=== PATIENT | female | born 1965 | race Caucasian/White ===

== ENCOUNTER 2021-07-30 14:34 | Observation (INO) | payer MEDICARE ==
[2021-07-30] VITALS (24 sets, daily range): BP systolic 66–132; BP diastolic 37–106
[~2021-07-30] VITALS: Ht 152.4 cm; Wt 85.0 kg
[2021-07-30 15:31] LABS: HEMATOCRIT 31.2 % (37.0-47.0); HEMOGLOBIN 9.5 g/dl (12.0-16.0); IMMATURE GRANULOCYTES 0.5 % (0.0-5.0); MEAN CELL VOLUME 90.7 fL CALC (80.0-100.0); MEAN CORPUSCULAR HGB 27.6 pG CALC (26.0-32.0); MEAN CORPUSCULAR HGB CONC 30.4 g/dL CAL (32.0-36.0); NEUT# 9.92 thou/uL (2.00-7.15); RED BLOOD COUNT 3.44 mill/uL (4.20-5.60); RED CELL DISTRI WIDTH 14.8 % (11.5-15.5)
[2021-07-30 15:45] LABS: ALBUMIN 4.5 g/dL (3.2-5.0); ALKALINE PHOSPHATASE 66 u/l (38-126); ANION GAP 22 (6-22 (CALC)); BILIRUBIN, TOTAL 0.3 mg/dL (0.0-1.4); BUN 21 mg/dL (7-17); BUN/CREATININE RATIO 16 (12-20 (CALC)); CARBON DIOXIDE 20 mmol/l (22-30); CHLORIDE 101 mmol/l (95-108); CREATININE 1.3 mg/dL (0.5-1.0); ETHYL ALCOHOL 0 mg/dl (0-30); GFR 43 ML/MIN (>=60 (CALC)); GFR FOR AFR.AMER. 52 ML/MIN (>=60 (CALC)); LIPASE 253 u/l (23-300); MAGNESIUM 1.3 mg/dL (1.6-2.3); POTASSIUM 4.5 mmol/l (3.5-5.1); SGOT/AST 23 u/l (14-36); SODIUM 138 mmol/l (137-146); TOTAL PROTEIN 8.1 g/dL (6.3-8.2)
[2021-07-30 15:51] LABS: ACT PARTIAL THROMBO TIME 21.7 SECONDS (20.0-32.5); INTERNATIONAL NORMALIZED RATIO 0.9 RATIO (0.7-1.3); PROTHROMBIN TIME 9.9 SECONDS (9.0-12.5)
[2021-07-30] MEDS ORDERED: LEVOCETIRIZINE D5 MG PO (15:56)
[2021-07-30] MEDS ORDERED: LOPID600 MG PO (15:56)
[2021-07-30] MEDS ORDERED: VENLAFAXINE HCL75 M1 PO (15:57)
[2021-07-30] MEDS ORDERED: METFORMIN HCL1000 MG PO (15:57)
[2021-07-30] MEDS ORDERED: VENLAFAXINE150 M1 PO (15:58)
[2021-07-30] MEDS ORDERED: BUPROPION150 M3 PO (15:58)
[2021-07-30] MEDS ORDERED: BUPROPN HCL300 MG PO (15:58)
[2021-07-30] MEDS ORDERED: SIMVASTATIN20 M1 (15:59)
[2021-07-30] MEDS ORDERED: ATIVAN1 MG PO (15:59)
[2021-07-30] MEDS ORDERED: NOVOLOG FL100 UNIT/M (16:01)
[2021-07-30] MEDS ORDERED: LANTUS100 UNIT (16:02)
[2021-07-30 16:13] LABS: URINE BLOOD DIPSTICK SMALL (NEGATIVE); URINE COLOR YELLOW; URINE GLUCOSE - DIPSTICK NEGATIVE (NEGATIVE); URINE KETONE 15 mg/dL (NEGATIVE); URINE PH 5.5 (4.5-8.0); URINE PROTEIN - DIPSTICK 100 mg/dL (NEG-TRACE); URINE SPECIFIC GRAVITY >=1.030; URINE UROBILINOGEN - DIPSTICK 0.2 E.U./dL (0.2)
[2021-07-30 16:14] LABS: URINE BILIRUBIN - DIPSTICK SMALL (NEGATIVE); URINE LEUK ESTERASE MODERATE (NEGATIVE); URINE NITRITE - DIPSTICK NEGATIVE (Negative)
[2021-07-30 16:16] LABS: URINE BACTERIA FEW hpf; URINE EPITHELIAL CELLS MODERATE EPI/hpf (0-FEW)
[2021-07-31] VITALS (30 sets, daily range): BP systolic 104–153; BP diastolic 48–99
[2021-07-31 04:14] LABS: HEMATOCRIT 32.6 % (37.0-47.0); HEMOGLOBIN 9.9 g/dl (12.0-16.0); MEAN CELL VOLUME 89.8 fL CALC (80.0-100.0); MEAN CORPUSCULAR HGB 27.3 pG CALC (26.0-32.0); MEAN CORPUSCULAR HGB CONC 30.4 g/dL CAL (32.0-36.0); RED BLOOD COUNT 3.63 mill/uL (4.20-5.60); RED CELL DISTRI WIDTH 14.9 % (11.5-15.5)
[2021-07-31 04:32] LABS: ANION GAP 12 (6-22 (CALC)); BUN 14 mg/dL (7-17); BUN/CREATININE RATIO 21 (12-20 (CALC)); CARBON DIOXIDE 22 mmol/l (22-30); CHLORIDE 107 mmol/l (95-108); CREATININE 0.7 mg/dL (0.5-1.0); GFR > 60 ML/MIN (>=60 (CALC)); GFR FOR AFR.AMER. > 60 ML/MIN (>=60 (CALC)); MAGNESIUM 1.6 mg/dL (1.6-2.3); POTASSIUM 4.2 mmol/l (3.5-5.1); SODIUM 137 mmol/l (137-146)
[2021-07-31] MEDS ORDERED: LISINOPRIL30 MG PO (11:15)
[2021-08-01] VITALS (7 sets, daily range): BP systolic 117–144; BP diastolic 67–105
[2021-08-01 05:43] LABS: HEMATOCRIT 31.8 % (37.0-47.0); HEMOGLOBIN 9.7 g/dl (12.0-16.0); MEAN CELL VOLUME 89.6 fL CALC (80.0-100.0); MEAN CORPUSCULAR HGB 27.3 pG CALC (26.0-32.0); MEAN CORPUSCULAR HGB CONC 30.5 g/dL CAL (32.0-36.0); RED BLOOD COUNT 3.55 mill/uL (4.20-5.60); RED CELL DISTRI WIDTH 14.7 % (11.5-15.5)
[2021-08-01 05:59] LABS: ANION GAP 11 (6-22 (CALC)); BUN 13 mg/dL (7-17); BUN/CREATININE RATIO 20 (12-20 (CALC)); CARBON DIOXIDE 23 mmol/l (22-30); CHLORIDE 105 mmol/l (95-108); CREATININE 0.6 mg/dL (0.5-1.0); GFR > 60 ML/MIN (>=60 (CALC)); GFR FOR AFR.AMER. > 60 ML/MIN (>=60 (CALC)); POTASSIUM 3.9 mmol/l (3.5-5.1); SODIUM 135 mmol/l (137-146)
[2021-08-01] MEDS ORDERED: CIPROFLOXACN500 MG PO (08:27)
== END 2021-08-01 09:50 | disposition home or self-care (01) ==
LOC: ED 14:34 → ED-I 14:57 → ED 14:57 → ED-I 16:55 → ED 17:05 → ICU 17:06
PROVIDERS: Internal Medicine; ADMIT Hospitalist; ATTEND Hospitalist
DX: A41.9 Sepsis, unspecified organism (principal); R65.20 Severe sepsis without septic shock; N17.9 Acute kidney failure, unspecified; N39.0 Urinary tract infection, site not specified; E87.2 Acidosis; I10 Essential (primary) hypertension; E11.9 Type 2 diabetes mellitus without complications; E83.42 Hypomagnesemia; E78.5 Hyperlipidemia, unspecified; F41.9 Anxiety disorder, unspecified; F32.A Depression, unspecified; B96.20 Unspecified Escherichia coli [E. coli] as the cause of diseases classified elsewhere; Z88.0 Allergy status to penicillin; Z79.4 Long term (current) use of insulin; Z79.84 Long term (current) use of oral hypoglycemic drugs; Z20.822 Contact with and (suspected) exposure to COVID-19
CPT/HCPCS: J1650; J3475; Q9967

== ENCOUNTER 2022-08-28 13:32 | Emergency (ER) | payer MEDICARE, OTHER ==
[~2022-08-28] VITALS: Ht 152.4 cm; Wt 78.1 kg
[~2022-08-28 13:32] MED LIST: ATIVAN1 MG PO; BUPROPION150 M3 PO; BUPROPN HCL300 MG PO; CIPROFLOXACN500 MG PO; LANTUS100 UNIT; LEVOCETIRIZINE D5 MG PO; LISINOPRIL30 MG PO; LOPID600 MG PO; METFORMIN HCL1000 MG PO; NOVOLOG FL100 UNIT/M; SIMVASTATIN20 M1; VENLAFAXINE HCL75 M1 PO; VENLAFAXINE150 M1 PO
[2022-08-28 13:40] VITALS: BP 109/76
[2022-08-28 13:45] VITALS: BP 112/73
[2022-08-28 14:00] VITALS: BP 100/70
[2022-08-28 14:02] LABS: BASO% 0.5 % (0-3); EOS% 4.2 % (0-8); IMMATURE GRANULOCYTES 0.8 % (0.0-5.0); LYMPH% 19.2 % (15-41); MEAN CELL VOLUME 89.7 fL CALC (80.0-100.0); MEAN CORPUSCULAR HGB 28.1 pG CALC (26.0-32.0); MEAN CORPUSCULAR HGB CONC 31.3 g/dL CAL (32.0-36.0); MONO% 6.9 % (2-13); NEUT% 68.4 % (42-76); RED BLOOD COUNT 4.74 mill/uL (4.20-5.60); RED CELL DISTRI WIDTH 13.3 % (11.5-15.5)
[2022-08-28 14:04] LABS: HEMATOCRIT 42.5 % (37.0-47.0); HEMOGLOBIN 13.3 g/dl (12.0-16.0)
[2022-08-28 14:15] VITALS: BP 101/64
[2022-08-28 14:20] LABS: ALKALINE PHOSPHATASE 62 u/l (38-126); BUN 18 mg/dL (7-17); BUN/CREATININE RATIO 23 (12-20 (CALC)); CARBON DIOXIDE 26 mmol/l (22-30); CHLORIDE 101 mmol/l (95-108); CREATININE 0.8 mg/dL (0.5-1.0); GFR FOR AFR.AMER. > 60 ML/MIN (>=60 (CALC)); GFR OTHER RACES > 60 ML/MIN (>=60 (CALC)); SGOT/AST 28 u/l (14-36); SODIUM 140 mmol/l (137-146)
[2022-08-28 14:21] LABS: ANION GAP 17 (6-22 (CALC)); BILIRUBIN, TOTAL 0.3 mg/dL (0.02-1.3); POTASSIUM 4.4 mmol/l (3.5-5.1); TOTAL PROTEIN 8.8 g/dL (6.3-8.2)
[2022-08-28] MEDS ORDERED: MECLIZINE 2525 MG PO (16:29)
[2022-08-28 16:43] VITALS: BP 101/64
== END 2022-08-28 17:31 | disposition home or self-care (01) ==
LOC: ED 13:32
PROVIDERS: Family Medicine
DX: R42 Dizziness and giddiness (principal); I10 Essential (primary) hypertension; E11.9 Type 2 diabetes mellitus without complications; J45.909 Unspecified asthma, uncomplicated; F32.A Depression, unspecified; F41.9 Anxiety disorder, unspecified; E78.00 Pure hypercholesterolemia, unspecified; Z79.84 Long term (current) use of oral hypoglycemic drugs; Z79.4 Long term (current) use of insulin

== ENCOUNTER 2023-11-25 10:51 | Emergency (ER) | payer MEDICARE ==
[~2023-11-25] VITALS: Ht 152.4 cm; Wt 71.4 kg
[2023-11-25] VITALS (8 sets, daily range): BP systolic 97–128; BP diastolic 61–83
[~2023-11-25 10:51] MED LIST changes: +MECLIZINE 2525 MG PO
[2023-11-25] MEDS ORDERED: SODIUM CHLORIDE 0.9% 1,000 ML IV ONE (11:30)
[2023-11-25 12:01] LABS: BASO% 1.2 % (0-3); EOS% 6.2 % (0-8); HEMATOCRIT 40.3 % (37.0-47.0); IMMATURE GRANULOCYTES 0.6 % (0.0-5.0); MEAN CELL VOLUME 92.2 fL CALC (80.0-100.0); MEAN CORPUSCULAR HGB 29.7 pG CALC (26.0-32.0); MEAN CORPUSCULAR HGB CONC 32.3 g/dL CAL (32.0-36.0); MONO% 6.8 % (2-13); NEUT# 4.89 thou/uL (2.00-7.15); NEUT% 57.2 % (42-76); RED BLOOD COUNT 4.37 mill/uL (4.20-5.60); RED CELL DISTRI WIDTH 12.7 % (11.5-15.5)
[2023-11-25 12:29] LABS: ALKALINE PHOSPHATASE 60 u/l (38-126); BILIRUBIN, TOTAL 0.5 mg/dL (0.02-1.3); BUN 21 mg/dL (7-17); BUN/CREATININE RATIO 24 (12-20 (CALC)); CHLORIDE 110 mmol/l (95-108); CREATININE 0.9 mg/dL (0.5-1.0); ESTIMATED GFR 76 ML/MIN (>=90 (CALC)); LIPASE 280 u/l (23-300); POTASSIUM 4.7 mmol/l (3.5-5.1); SGOT/AST 34 u/l (14-36); SODIUM 141 mmol/l (137-146)
[2023-11-25 12:32] LABS: ANION GAP 15 (6-22 (CALC)); CARBON DIOXIDE 21 mmol/l (22-30); TOTAL PROTEIN 9.1 g/dL (6.3-8.2)
[2023-11-25 13:34] LABS: URINE BILIRUBIN - DIPSTICK Negative (NEGATIVE); URINE BLOOD DIPSTICK Trace-lysed (NEGATIVE); URINE GLUCOSE - DIPSTICK Negative (NEGATIVE); URINE KETONE Negative (NEGATIVE); URINE LEUK ESTERASE Trace (NEGATIVE); URINE NITRITE - DIPSTICK Negative (Negative); URINE PROTEIN - DIPSTICK Negative (NEG-TRACE); URINE SPECIFIC GRAVITY 1.025; URINE UROBILINOGEN - DIPSTICK 0.2 E.U./dL (0.2)
[2023-11-25 13:36] LABS: URINE COLOR Yellow
[2023-11-25] MEDS ORDERED: IMODIUM A-D2 M3 PO (14:03)
== END 2023-11-25 14:12 | disposition home or self-care (01) ==
LOC: ED 10:51
PROVIDERS: Family Medicine
DX: K52.9 Noninfective gastroenteritis and colitis, unspecified (principal); I10 Essential (primary) hypertension; E11.9 Type 2 diabetes mellitus without complications; J45.909 Unspecified asthma, uncomplicated; E78.00 Pure hypercholesterolemia, unspecified; F41.9 Anxiety disorder, unspecified; F32.A Depression, unspecified; Z79.84 Long term (current) use of oral hypoglycemic drugs; Z79.4 Long term (current) use of insulin

== ENCOUNTER 2024-01-31 08:54 | Emergency (ER) | payer MEDICARE ==
[2024-01-31] VITALS (7 sets, daily range): BP systolic 132–143; BP diastolic 72–85
[~2024-01-31] VITALS: Ht 152.4 cm; Wt 69.0 kg
[~2024-01-31 08:54] MED LIST changes: +IMODIUM A-D2 M3 PO
[2024-01-31 09:32] LABS: URINE BILIRUBIN - DIPSTICK Negative (NEGATIVE); URINE BLOOD DIPSTICK Large (NEGATIVE); URINE COLOR Yellow; URINE GLUCOSE - DIPSTICK Negative (NEGATIVE); URINE KETONE Negative (NEGATIVE); URINE LEUK ESTERASE Negative (NEGATIVE); URINE NITRITE - DIPSTICK Negative (Negative); URINE PROTEIN - DIPSTICK 100 mg/dL (NEG-TRACE); URINE SPECIFIC GRAVITY 1.025; URINE UROBILINOGEN - DIPSTICK 0.2 E.U./dL (0.2)
[2024-01-31 09:34] LABS: BASO% 1.5 % (0-3); EOS% 6.6 % (0-8); HEMATOCRIT 32.8 % (37.0-47.0); HEMOGLOBIN 10.1 g/dl (12.0-16.0); IMMATURE GRANULOCYTES 0.5 % (0.0-5.0); LYMPH% 22.1 % (15-41); MEAN CELL VOLUME 95.1 fL CALC (80.0-100.0); MEAN CORPUSCULAR HGB 29.3 pG CALC (26.0-32.0); MEAN CORPUSCULAR HGB CONC 30.8 g/dL CAL (32.0-36.0); MONO% 8.1 % (2-13); NEUT# 4.85 thou/uL (2.00-7.15); NEUT% 61.2 % (42-76); RED BLOOD COUNT 3.45 mill/uL (4.20-5.60); RED CELL DISTRI WIDTH 14.1 % (11.5-15.5)
[2024-01-31 09:44] LABS: URINE RBC 25-50 RBC/hpf (0-5)
[2024-01-31 09:45] LABS: URINE SQUAMOUS EPITHELIAL CELL FEW EPI/hpf (0-FEW)
[2024-01-31 10:03] LABS: ALBUMIN 4.7 g/dL (3.2-5.0); BILIRUBIN, TOTAL 0.5 mg/dL (0.02-1.3); CREATININE 0.6 mg/dL (0.5-1.0)
[2024-01-31 10:04] LABS: POTASSIUM 5.6 mmol/l (3.5-5.1)
== END 2024-01-31 10:48 | disposition home or self-care (01) ==
LOC: ED 08:54
PROVIDERS: Family Medicine
DX: R19.7 Diarrhea, unspecified (principal); N93.9 Abnormal uterine and vaginal bleeding, unspecified; I10 Essential (primary) hypertension; E11.9 Type 2 diabetes mellitus without complications; J45.909 Unspecified asthma, uncomplicated; F41.9 Anxiety disorder, unspecified; F32.A Depression, unspecified; E78.00 Pure hypercholesterolemia, unspecified; Z79.84 Long term (current) use of oral hypoglycemic drugs; Z79.4 Long term (current) use of insulin

== ENCOUNTER 2024-02-03 06:48 | Emergency (ER) | payer MEDICARE ==
[~2024-02-03] VITALS: Ht 152.4 cm; Wt 68.9 kg
[2024-02-03 07:06] VITALS: BP 130/78
[2024-02-03 07:15] VITALS: BP 132/72
[2024-02-03] MEDS ORDERED: CEPHALEXIN500 M1 PO (08:27)
[2024-02-03 08:38] VITALS: BP 132/72
== END 2024-02-03 08:38 | disposition home or self-care (01) ==
LOC: ED 06:48
DX: T80.29XA Infection following other infusion, transfusion and therapeutic injection, initial encounter (principal); L03.113 Cellulitis of right upper limb; I10 Essential (primary) hypertension; E11.9 Type 2 diabetes mellitus without complications; F41.9 Anxiety disorder, unspecified; F32.A Depression, unspecified; E78.00 Pure hypercholesterolemia, unspecified; J45.909 Unspecified asthma, uncomplicated; Y84.8 Other medical procedures as the cause of abnormal reaction of the patient, or of later complication, without mention of misadventure at the time of the procedure; Z79.84 Long term (current) use of oral hypoglycemic drugs; Z79.4 Long term (current) use of insulin

== ENCOUNTER 2024-03-25 07:33 | Emergency (ER) | payer MEDICARE ==
[~2024-03-25] VITALS: Ht 152.4 cm; Wt 85.0 kg
[~2024-03-25 07:33] MED LIST changes: +CEPHALEXIN500 M1 PO
[2024-03-25 08:03] LABS: URINE BILIRUBIN - DIPSTICK Negative (NEGATIVE); URINE BLOOD DIPSTICK Large (NEGATIVE); URINE GLUCOSE - DIPSTICK Negative (NEGATIVE); URINE KETONE Negative (NEGATIVE); URINE LEUK ESTERASE Negative (NEGATIVE); URINE NITRITE - DIPSTICK Negative (Negative); URINE PH 5.5 (4.5-8.0); URINE PROTEIN - DIPSTICK >=300 mg/dL (NEG-TRACE); URINE SPECIFIC GRAVITY >=1.030; URINE UROBILINOGEN - DIPSTICK 0.2 E.U./dL (0.2)
[2024-03-25 08:08] LABS: BASO% 1.3 % (0-3); HEMOGLOBIN 9.4 g/dl (12.0-16.0); IMMATURE GRANULOCYTES 0.2 % (0.0-5.0); LYMPH% 18.2 % (15-41); MEAN CORPUSCULAR HGB 26.5 pG CALC (26.0-32.0); MEAN CORPUSCULAR HGB CONC 30.3 g/dL CAL (32.0-36.0); MONO% 9.3 % (2-13); NEUT# 5.71 thou/uL (2.00-7.15); RED BLOOD COUNT 3.55 mill/uL (4.20-5.60); RED CELL DISTRI WIDTH 14.3 % (11.5-15.5)
[2024-03-25 08:13] LABS: MEAN CELL VOLUME 87.3 fL CALC (80.0-100.0); URINE COLOR Yellow
[2024-03-25 08:19] LABS: URINE HYALINE CAST MODERATE lpf (NONE-RARE)
[2024-03-25 08:20] LABS: URINE BACTERIA FEW hpf
[2024-03-25 08:22] LABS: ALBUMIN 4.2 g/dL (3.2-5.0); BILIRUBIN, TOTAL 0.4 mg/dL (0.02-1.3); CREATININE 0.7 mg/dL (0.5-1.0); POTASSIUM 3.9 mmol/l (3.5-5.1); TOTAL PROTEIN 7.6 g/dL (6.3-8.2)
[2024-03-25] MEDS ORDERED: SODIUM CHLORIDE 0.9% 1,000 ML IV ONE (08:25)
[2024-03-25] MEDS ORDERED: KETOROLAC TROMETHAMINE 15 MG/ML SDV IV ONE (08:25)
[2024-03-25] MEDS ORDERED: ISOVUE-300 (Iopamidol) 100 ML SDV IV ONE (08:25)
[2024-03-25 09:52] VITALS: BP 138/74
[2024-03-25] MEDS ORDERED: ZOFRAN4 MG/TAB PO (10:37)
[2024-03-25] MEDS ORDERED: HYDROCO/APAP1 TA9 PO (10:37)
== END 2024-03-25 10:41 | disposition home or self-care (01) ==
LOC: ED 07:33
PROVIDERS: Family Medicine
DX: N85.9 Noninflammatory disorder of uterus, unspecified (principal); R91.8 Other nonspecific abnormal finding of lung field; I10 Essential (primary) hypertension; E11.9 Type 2 diabetes mellitus without complications; J45.909 Unspecified asthma, uncomplicated; E78.00 Pure hypercholesterolemia, unspecified; F32.A Depression, unspecified; F41.9 Anxiety disorder, unspecified; Z79.4 Long term (current) use of insulin; Z79.84 Long term (current) use of oral hypoglycemic drugs
CPT/HCPCS: Q9967

== ENCOUNTER 2024-04-16 11:28 | Emergency (ER) | payer MEDICARE ==
[~2024-04-16] VITALS: Ht 152.4 cm; Wt 77.0 kg
[2024-04-16] VITALS (21 sets, daily range): BP systolic 79–142; BP diastolic 50–77
[~2024-04-16 11:28] MED LIST changes: +BAYER ASPIRIN E81 MG PO; +CREON24000 UNT PO; +HYDROCO/APAP1 TA9 PO; +MOUNJARO7.5 M1 SC; +TENORMIN50 MG PO; +ZOFRAN4 MG/TAB PO
[2024-04-16 12:14] LABS: BASO% 1.9 % (0-3); EOS% 1.4 % (0-8); IMMATURE GRANULOCYTES 0.9 % (0.0-5.0); MEAN CELL VOLUME 86.7 fL CALC (80.0-100.0); MEAN CORPUSCULAR HGB 24.5 pG CALC (26.0-32.0); MEAN CORPUSCULAR HGB CONC 28.2 g/dL CAL (32.0-36.0); MONO% 6.1 % (2-13); NEUT# 6.5 thou/uL (2.00-7.15); NEUT% 71.7 % (42-76); RED BLOOD COUNT 2.33 mill/uL (4.20-5.60); RED CELL DISTRI WIDTH 16.8 % (11.5-15.5)
[2024-04-16 12:31] LABS: ALBUMIN 4.1 g/dL (3.2-5.0); ALKALINE PHOSPHATASE 73 u/l (38-126); BILIRUBIN, TOTAL 0.4 mg/dL (0.02-1.3); CARBON DIOXIDE 19 mmol/l (22-30); CHLORIDE 107 mmol/l (95-108); CREATININE 0.8 mg/dL (0.5-1.0); ESTIMATED GFR 86 ML/MIN (>=90 (CALC)); LIPASE 192 u/l (23-300); SGOT/AST 43 u/l (14-36); SODIUM 140 mmol/l (137-146); TOTAL PROTEIN 7.2 g/dL (6.3-8.2)
[2024-04-16 12:47] LABS: HEMATOCRIT 20.2 % (37.0-47.0)
[2024-04-16 12:48] LABS: HEMOGLOBIN 5.7 g/dl (12.0-16.0)
[2024-04-16 12:54] LABS: ANION GAP 19 (6-22 (CALC)); BUN 41 mg/dL (7-17); BUN/CREATININE RATIO 51 (12-20 (CALC)); MAGNESIUM 2.1 mg/dL (1.6-2.3); POTASSIUM 4.8 mmol/l (3.5-5.1)
[2024-04-16] MEDS ORDERED: SODIUM CHLORIDE 0.9% 1,000 ML IV ONE (13:10)
[2024-04-16 15:48] LABS: URINE BILIRUBIN - DIPSTICK Negative (NEGATIVE); URINE BLOOD DIPSTICK Large (NEGATIVE); URINE GLUCOSE - DIPSTICK Negative (NEGATIVE); URINE KETONE Negative (NEGATIVE); URINE NITRITE - DIPSTICK Negative (Negative); URINE PROTEIN - DIPSTICK 30 mg/dL (NEG-TRACE); URINE UROBILINOGEN - DIPSTICK 0.2 E.U./dL (0.2)
[2024-04-16 15:49] LABS: URINE COLOR Yellow; URINE LEUK ESTERASE Small (NEGATIVE)
[2024-04-16 16:04] LABS: URINE RBC 50-100 RBC/hpf (0-5)
[2024-04-16 16:05] LABS: URINE URIC ACID CRYSTALS FEW lpf
== END 2024-04-16 18:14 | disposition short-term general hospital (02) ==
LOC: ED 11:28
PROVIDERS: Family Medicine
PROC: 30233N1 Transfusion of Nonautologous Red Blood Cells into Peripheral Vein, Percutaneous Approach (ICD-10-PCS; principal; 2024-04-16)
PROC: 30233N1 Transfusion of Nonautologous Red Blood Cells into Peripheral Vein, Percutaneous Approach (ICD-10-PCS; 2024-04-16)
DX: N85.8 Other specified noninflammatory disorders of uterus (principal); R91.8 Other nonspecific abnormal finding of lung field; N93.9 Abnormal uterine and vaginal bleeding, unspecified; D64.9 Anemia, unspecified; I10 Essential (primary) hypertension; E11.9 Type 2 diabetes mellitus without complications; J45.909 Unspecified asthma, uncomplicated; F32.A Depression, unspecified; F41.9 Anxiety disorder, unspecified; E78.00 Pure hypercholesterolemia, unspecified; K86.89 Other specified diseases of pancreas; Z79.84 Long term (current) use of oral hypoglycemic drugs; Z20.822 Contact with and (suspected) exposure to COVID-19
CPT/HCPCS: P9016

== ENCOUNTER 2024-05-10 16:22 | Emergency (ER) | payer MEDICARE ==
[~2024-05-10] VITALS: Ht 152.4 cm; Wt 59.0 kg
[~2024-05-10 16:22] MED LIST changes: +VENLAFAXINE HC150 MG PO; -VENLAFAXINE150 M1 PO
[2024-05-10] MEDS ORDERED: HYDROmorphone HCL 2 MG/AMP IM ONE (16:35)
[2024-05-10] MEDS ORDERED: METHOCARBAMOL 1,000 MG/10 ML VIAL IV ONE (16:40)
[2024-05-10] MEDS ORDERED: ONDANSETRON HCl 4 MG/2 ML SDV IV ONE (16:40)
[2024-05-10 17:19] LABS: EOS% 2.4 % (0-8); IMMATURE GRANULOCYTES 0.4 % (0.0-5.0); LYMPH% 14.9 % (15-41); MEAN CORPUSCULAR HGB CONC 28.2 g/dL CAL (32.0-36.0); MONO% 6.8 % (2-13); NEUT# 6.01 thou/uL (2.00-7.15); NEUT% 74.5 % (42-76); RED BLOOD COUNT 4.66 mill/uL (4.20-5.60); RED CELL DISTRI WIDTH 16.5 % (11.5-15.5)
[2024-05-10 17:20] LABS: HEMATOCRIT 44.7 % (37.0-47.0); HEMOGLOBIN 12.6 g/dl (12.0-16.0); MEAN CELL VOLUME 95.9 fL CALC (80.0-100.0)
[2024-05-10 17:25] LABS: ALBUMIN 3.8 g/dL (3.2-5.0); BILIRUBIN, TOTAL 0.5 mg/dL (0.02-1.3); CREATININE 0.6 mg/dL (0.5-1.0); LIPASE 273 u/l (23-300); POTASSIUM 3.8 mmol/l (3.5-5.1); TOTAL PROTEIN 7.3 g/dL (6.3-8.2)
[2024-05-10 17:30] VITALS: BP 133/75
[2024-05-10] MEDS ORDERED: METHOCARBAMOL500 MG PO (18:41)
[2024-05-10] MEDS ORDERED: PERCOCET 5/325M1 TAB PO (18:41)
[2024-05-10 18:47] LABS: URINE BLOOD DIPSTICK Large (NEGATIVE); URINE COLOR Red; URINE GLUCOSE - DIPSTICK Negative (NEGATIVE); URINE KETONE Trace mg/dL (NEGATIVE); URINE LEUK ESTERASE Moderate (NEGATIVE); URINE NITRITE - DIPSTICK Negative (Negative); URINE PROTEIN - DIPSTICK >=300 mg/dL (NEG-TRACE); URINE SPECIFIC GRAVITY 1.025; URINE UROBILINOGEN - DIPSTICK 0.2 E.U./dL (0.2)
[2024-05-10 18:49] LABS: URINE RBC >100 RBC/hpf (0-5); URINE WBC >100 WBC/hpf (0-5)
[2024-05-10 18:50] LABS: URINE CALCIUM OXALATE CRYSTALS FEW lpf
[2024-05-10 18:55] VITALS: BP 133/75
[2024-05-10] MEDS ORDERED: BACTRIM DS1 TAB PO (18:56)
== END 2024-05-10 19:00 | disposition home or self-care (01) ==
LOC: ED 16:22
PROVIDERS: Nurse Practitioner Family
DX: M48.54XA Collapsed vertebra, not elsewhere classified, thoracic region, initial encounter for fracture (principal); N39.0 Urinary tract infection, site not specified; C55 Malignant neoplasm of uterus, part unspecified; C78.00 Secondary malignant neoplasm of unspecified lung; I10 Essential (primary) hypertension; E11.9 Type 2 diabetes mellitus without complications; J45.909 Unspecified asthma, uncomplicated; F41.9 Anxiety disorder, unspecified; F32.A Depression, unspecified; E78.00 Pure hypercholesterolemia, unspecified; Z79.891 Long term (current) use of opiate analgesic; Z79.84 Long term (current) use of oral hypoglycemic drugs
CPT/HCPCS: J1171; J2405; J2800

== ENCOUNTER 2024-05-10 20:55 | Emergency (ER) | payer MEDICARE ==
[~2024-05-10 20:55] MED LIST changes: +BACTRIM DS1 TAB PO; +METHOCARBAMOL500 MG PO; +PERCOCET 5/325M1 TAB PO
== END 2024-05-10 22:45 | disposition left against medical advice (07) ==
LOC: ED 20:55 → LWOBS 22:45
DX: Z53.21 Procedure and treatment not carried out due to patient leaving prior to being seen by health care provider (principal)

== ENCOUNTER 2024-05-13 16:39 | Inpatient (IN) | payer MEDICARE ==
[2024-05-13] VITALS (11 sets, daily range): BP systolic 147–179; BP diastolic 80–100
[~2024-05-13] VITALS: Ht 274.3 cm; Wt 58.8 kg
[2024-05-13] MEDS ORDERED: SODIUM CHLORIDE 0.9% 1,000 ML IV ONE (16:50)
[2024-05-13 17:09] LABS: EOS% 1.6 % (0-8); HEMOGLOBIN 12.3 g/dl (12.0-16.0); IMMATURE GRANULOCYTES 0.3 % (0.0-5.0); LYMPH% 14.2 % (15-41); MEAN CELL VOLUME 86.9 fL CALC (80.0-100.0); MEAN CORPUSCULAR HGB 27.4 pG CALC (26.0-32.0); MEAN CORPUSCULAR HGB CONC 31.5 g/dL CAL (32.0-36.0); MONO% 7.6 % (2-13); NEUT# 6.01 thou/uL (2.00-7.15); NEUT% 75.3 % (42-76); RED BLOOD COUNT 4.49 mill/uL (4.20-5.60); RED CELL DISTRI WIDTH 16.5 % (11.5-15.5)
[2024-05-13 17:22] LABS: ALKALINE PHOSPHATASE 91 u/l (38-126); ANION GAP 11 (6-22 (CALC)); BILIRUBIN, TOTAL 0.5 mg/dL (0.02-1.3); BUN 13 mg/dL (7-17); BUN/CREATININE RATIO 14 (12-20 (CALC)); CARBON DIOXIDE 28 mmol/l (22-30); CHLORIDE 103 mmol/l (95-108); CREATININE 0.9 mg/dL (0.5-1.0); ESTIMATED GFR 75 ML/MIN (>=90 (CALC)); LIPASE 74 u/l (23-300); POTASSIUM 3.8 mmol/l (3.5-5.1); SGOT/AST 46 u/l (14-36); SODIUM 139 mmol/l (137-146); TOTAL PROTEIN 7.6 g/dL (6.3-8.2)
[2024-05-13] MEDS ORDERED: ZOLEDRONIC ACID 4 MG/5 ML VIAL IV ONE (18:15)
[2024-05-13] MEDS ORDERED: MORPHINE SULFATE 4 MG/ML VIAL IV ONE (18:15)
[2024-05-13] MEDS ORDERED: MAGNESIUM HYDROXIDE 30 ML UDC PO PRN (20:10)
[2024-05-13] MEDS ORDERED: oxyCODONE 5MG/ ACETAMINOPHEN 325MG TAB PO PRN (20:10)
[2024-05-13] MEDS ORDERED: ACETAMINOPHEN 325 MG/TAB PO PRN (20:10)
[2024-05-13] MEDS ORDERED: SODIUM CHLORIDE 0.9% 1,000 ML IV PRN (20:10)
[2024-05-13] MEDS ORDERED: MORPHINE SULFATE 4 MG/ML VIAL IV PRN (20:15)
[2024-05-13 20:37] LABS: URINE BILIRUBIN - DIPSTICK Negative (NEGATIVE); URINE BLOOD DIPSTICK Moderate (NEGATIVE); URINE COLOR Yellow; URINE GLUCOSE - DIPSTICK Negative (NEGATIVE); URINE KETONE 40 mg/dL (NEGATIVE); URINE LEUK ESTERASE Moderate (NEGATIVE); URINE NITRITE - DIPSTICK Negative (Negative); URINE PH 5.5 (4.5-8.0); URINE PROTEIN - DIPSTICK 100 mg/dL (NEG-TRACE); URINE SPECIFIC GRAVITY 1.025; URINE UROBILINOGEN - DIPSTICK 0.2 E.U./dL (0.2)
[2024-05-13 20:51] LABS: URINE WBC >100 WBC/hpf (0-5)
[2024-05-13 20:52] LABS: URINE BACTERIA MODERATE hpf
[2024-05-13 20:53] LABS: URINE HYALINE CAST FEW lpf (NONE-RARE); URINE TRANSITIONAL EPI. CELLS FEW hpf
[2024-05-13] MEDS ORDERED: VENLAFAXINE HYDROCHLORIDE 75 MG/CAP PO SCH (21:00)
[2024-05-13] MEDS ORDERED: ENOXAPARIN SODIUM 40 MG/0.4 ML SYR SC SCH (21:00)
[2024-05-14] VITALS (17 sets, daily range): BP systolic 142–182; BP diastolic 80–103
[2024-05-14 05:12] LABS: HEMATOCRIT 37.7 % (37.0-47.0); HEMOGLOBIN 11.8 g/dl (12.0-16.0); MEAN CELL VOLUME 89.3 fL CALC (80.0-100.0); MEAN CORPUSCULAR HGB CONC 31.3 g/dL CAL (32.0-36.0); RED BLOOD COUNT 4.22 mill/uL (4.20-5.60); RED CELL DISTRI WIDTH 16.7 % (11.5-15.5)
[2024-05-14 05:42] LABS: ALBUMIN 3.6 g/dL (3.2-5.0); BILIRUBIN, TOTAL 0.5 mg/dL (0.02-1.3); CREATININE 0.6 mg/dL (0.5-1.0); POTASSIUM 3.8 mmol/l (3.5-5.1); TOTAL PROTEIN 6.9 g/dL (6.3-8.2)
[2024-05-14 05:44] LABS: MAGNESIUM 1.1 mg/dL (1.6-2.3)
[2024-05-14] MEDS ORDERED: oxyCODONE 10MG/APAP 325 MG 1 COMBO TAB PO PRN (08:05)
[2024-05-14] MEDS ORDERED: ZOLEDRONIC ACID IV SCH (09:00)
[2024-05-14] MEDS ORDERED: MAGNESIUM SULFATE HEPTAHYDRATE 50 ML IV SCH (09:00)
[2024-05-14] MEDS ORDERED: LISINOPRIL 10 MG/TAB PO SCH (09:00)
[2024-05-14] MEDS ORDERED: ATENOLOL 50 MG/TAB PO SCH (09:00)
[2024-05-14] MEDS ORDERED: DEXTROSE 5% IV SCH (09:00)
== END 2024-05-15 01:15 | DRG 641 ==
LOC: ED 16:39 → ED-I 18:20 → ED 18:45 → ICU 18:46
PROVIDERS: Family Medicine; ADMIT Internal Medicine; ATTEND Internal Medicine
DX: E83.52 Hypercalcemia (principal); C78.00 Secondary malignant neoplasm of unspecified lung; C79.51 Secondary malignant neoplasm of bone; M84.58XA Pathological fracture in neoplastic disease, other specified site, initial encounter for fracture; C55 Malignant neoplasm of uterus, part unspecified; G89.3 Neoplasm related pain (acute) (chronic); I10 Essential (primary) hypertension; E11.9 Type 2 diabetes mellitus without complications; E78.00 Pure hypercholesterolemia, unspecified; J45.909 Unspecified asthma, uncomplicated; F41.9 Anxiety disorder, unspecified; F32.A Depression, unspecified
CPT/HCPCS: J0696; J1650; J3475; J3489

== ENCOUNTER 2024-06-10 03:54 | Observation (INO) | payer MEDICARE ==
[~2024-06-10] VITALS: Ht 152.4 cm; Wt 55.0 kg
[2024-06-10] VITALS (21 sets, daily range): BP systolic 105–135; BP diastolic 57–75
--- NOTE | 2024-06-10 03:54 | NUR ---
PATIENT TO ROOM 10 VIA EMS
--- NOTE | 2024-06-10 04:30 | NUR ---
VOICES TO NOT OBTAIN PORT ACCESS, PT REFUSES PORT ACCESS, ATTEMPTING IV FOR ADMINISTRATION OF MEDICATON AND POSSIBLE BLOOD TRANSFUSION, PT APPEARS PALE AND UNCOMFORTABLE, C/O CHRONIC ABD PAIN, MD AWARE. LABS COLLECTED.
[2024-06-10 04:41] LABS: BASO% 0.9 % (0-3); EOS% 2.9 % (0-8); IMMATURE GRANULOCYTES 1.5 % (0.0-5.0); LYMPH% 13.5 % (15-41); MEAN CORPUSCULAR HGB 26.4 pG CALC (26.0-32.0); MEAN CORPUSCULAR HGB CONC 28.4 g/dL CAL (32.0-36.0); MONO% 6.6 % (2-13); NEUT# 9.68 thou/uL (2.00-7.15); NEUT% 74.6 % (42-76); RED BLOOD COUNT 2.27 mill/uL (4.20-5.60); RED CELL DISTRI WIDTH 18.8 % (11.5-15.5)
[2024-06-10 04:47] LABS: HEMATOCRIT 21.1 % (37.0-47.0)
[2024-06-10 04:53] LABS: ALBUMIN 3.3 g/dL (3.2-5.0); BILIRUBIN, TOTAL 0.4 mg/dL (0.02-1.3); CREATININE 0.7 mg/dL (0.5-1.0); POTASSIUM 4.2 mmol/l (3.5-5.1); TOTAL PROTEIN 7.2 g/dL (6.3-8.2)
[2024-06-10] MEDS ORDERED: SODIUM CHLORIDE 0.9% 1,000 ML IV ONE (04:55)
[2024-06-10] MEDS ORDERED: oxyCODONE 5MG/ ACETAMINOPHEN 325MG TAB PO ONE (04:55)
--- NOTE | 2024-06-10 05:10 | NUR ---
IV PATENT, PT MEDICATED PER ORDERS, UPDATED ON PLAN FOR BLOOD TRANSFUSION, PT VOICES UNDERSTANDING, AWAITING TYPE AND SCREEN AT THIS TIME.
[2024-06-10] MEDS ORDERED: ACETAMINOPHEN 325 MG/TAB PO PRN (05:50)
[2024-06-10 05:53] LABS: URINE BILIRUBIN - DIPSTICK Negative (NEGATIVE); URINE BLOOD DIPSTICK Moderate (NEGATIVE); URINE GLUCOSE - DIPSTICK Negative (NEGATIVE); URINE KETONE Negative (NEGATIVE); URINE LEUK ESTERASE Trace (NEGATIVE); URINE NITRITE - DIPSTICK Negative (Negative); URINE PH 5.5 (4.5-8.0); URINE PROTEIN - DIPSTICK 30 mg/dL (NEG-TRACE); URINE SPECIFIC GRAVITY 1.025; URINE UROBILINOGEN - DIPSTICK 0.2 E.U./dL (0.2)
[2024-06-10 05:54] LABS: URINE COLOR Yellow
[2024-06-10] MEDS ORDERED: oxyCODONE 5MG/ ACETAMINOPHEN 325MG TAB PO PRN (05:55)
--- NOTE | 2024-06-10 05:55 | NUR ---
BLOOD TRANSFUSION BEGAN AT THIS TIME, PT UPDATED ON CONTINUOUS PLAN OF CARE, PT REMAINS WITH MILD ABDOMINAL CRAMPING/PAIN, VSS. SENIOR BUSINESS PROCESS ANALYST WILL REMAIN AT BEDSIDE PER PROTOCOL.
[2024-06-10 06:04] LABS: URINE BACTERIA FEW hpf; URINE SQUAMOUS EPITHELIAL CELL FEW EPI/hpf (0-FEW)
[2024-06-10] MEDS ORDERED: OXYCODONE5 M1 PO (06:08)
[2024-06-10] MEDS ORDERED: ZOFRAN4 MG/TAB PO (06:09)
[2024-06-10] MEDS ORDERED: PROMETHAZINE PO (06:10)
[2024-06-10] MEDS ORDERED: METHOCARBAMOL750 MG PO (06:11)
--- NOTE | 2024-06-10 06:14 | NUR ---
REPORT CALLED TO [facility] ON [facility].
--- NOTE | 2024-06-10 06:35 | NUR ---
PT TRANSPORTED TO [facility] VIA STRETCHER BY TUBE MACHINE OPERATOR, BLOOD TRANSFUSION REMAINS IPR. PT VOICES APPRECIATION OF CARE.
--- NOTE | 2024-06-10 07:15 | NUR ---
PATIENT ADMITTED FROM ER VIA STRETCHER WITH STAFF IN ATTENDANCE AND 1ST UNIT OF PRBCS INFUSING VIA RAC-UNIT #[id number] [phone]. PATIENT IS AWAKE ALERT AND ORIENTEDX3. PATIENT WEAK BUT SHE IS ABLE TO GO TO THE STANDING SCALE AND THEN TO BED. PATIENT ADMITTED FOR ANEMIA NAD CURRENTLY BEING TREATED FOR UTERINE CANCER. PATIENT HAD A LAMINECTOMY T9-L1 FOR SPINAL FRACTURE. PATIENT DOES HAVE RIGHT UPPER CHEST PORT-NOT ACCESED AT THIS TIME. PATIENT ORIENTED TO ROOM AND HER SURROUNDINGS. INSTRUCTED ON USE OF NURSE CALL LIGHT SYSTEM AND TV REMOTE. SAFETY PRECAUTIONS REINFORCED. CALL LIGHT IN REACH.WILL CONT TO MONITOR,
--- NOTE | 2024-06-10 08:00 | NUR ---
PT IS FOUND RESTING IN BED; SOMEWHAT UNCOMFORTABLE. PT IS A&O X4. PT IS RECEIVING BLOOD. PT CAN MOVE ALL EXTREMITES; WEAKNESS. PLAN OF CARE WAS REVIEWED WITH THE PT; SHE STATES NO FURTHER QUESTIONS AT THIS TIME. CALL LIGHT IS WITHIN BEACH; BED ALARM IS ON.
[2024-06-10] MEDS ORDERED: FUROSEMIDE 40 MG/4 ML SDV IV ONE (09:00)
[2024-06-10] MEDS ORDERED: METHOCARBAMOL 500 MG/TAB PO PRN (12:45)
--- NOTE | 2024-06-10 12:45 | NUR ---
PT'S CONDITION HAS REMAINED THE SAME; PT COMPLAINS OF PAIN- WILL MEDICATE NEEDED. PT WILL RECEIVE ALL 3 BLOOD PRODUCTS AND THEN A RECHECK HGB WILL BE DONE. PLAN IS TO DISCHARGE LATER TODAY. NO FURTHER NEEDS AT THIS TIME. CALL LIGHT IS WITHIN REACH.
--- NOTE | 2024-06-10 15:30 | NUR ---
Discharge instructions given. Patient verbalizes understanding of same. Discharged in stable condition via Wheelchair to Home with family. All belongings sent with pt. IV is out and pt had no TELE on.
--- NOTE | 2024-06-12 10:20 | NUR ---
Discharge follow up call completed 06/12/24. Patient states she is doing well since discharge. No medicain was prescribed at discharge. Patient saw her oncologist yesterday and began treatment for her condition. No needs or concerns verbalized at this time. She is appreciative of follow up.
== END 2024-06-10 15:29 | disposition home or self-care (01) ==
LOC: ED 03:54 → ED-I 05:30 → ED 05:48 → MS2 05:49
PROVIDERS: Family Medicine; ADMIT Internal Medicine; ATTEND Internal Medicine
PROC: 30233N1 Transfusion of Nonautologous Red Blood Cells into Peripheral Vein, Percutaneous Approach (ICD-10-PCS; principal; 2024-06-10)
PROC: 30233N1 Transfusion of Nonautologous Red Blood Cells into Peripheral Vein, Percutaneous Approach (ICD-10-PCS; 2024-06-10)
PROC: 30233N1 Transfusion of Nonautologous Red Blood Cells into Peripheral Vein, Percutaneous Approach (ICD-10-PCS; 2024-06-10)
DX: D62 Acute posthemorrhagic anemia (principal); C55 Malignant neoplasm of uterus, part unspecified; C78.00 Secondary malignant neoplasm of unspecified lung; C79.51 Secondary malignant neoplasm of bone; N93.9 Abnormal uterine and vaginal bleeding, unspecified; I10 Essential (primary) hypertension; E11.9 Type 2 diabetes mellitus without complications; E78.5 Hyperlipidemia, unspecified; J45.909 Unspecified asthma, uncomplicated; F32.A Depression, unspecified; F41.9 Anxiety disorder, unspecified; Z79.84 Long term (current) use of oral hypoglycemic drugs
CPT/HCPCS: G0378; J1940; P9016

== ENCOUNTER 2024-07-17 11:11 | Emergency (ER) | payer MEDICARE ==
[~2024-07-17] VITALS: Ht 152.4 cm; Wt 50.3 kg
[2024-07-17] VITALS (14 sets, daily range): BP systolic 106–130; BP diastolic 59–77
[~2024-07-17 11:11] MED LIST changes: +METHOCARBAMOL750 MG PO; +OXYCODONE5 M1 PO; +PROMETHAZINE PO
[2024-07-17] MEDS ORDERED: SODIUM CHLORIDE 0.9% 1,000 ML IV ONE (11:50)
[2024-07-17 12:00] LABS: BASO% 0.3 % (0-3); EOS% 0.6 % (0-8); IMMATURE GRANULOCYTES 0.5 % (0.0-5.0); LYMPH% 5.7 % (15-41); MEAN CELL VOLUME 90.9 fL CALC (80.0-100.0); MEAN CORPUSCULAR HGB 27.8 pG CALC (26.0-32.0); MEAN CORPUSCULAR HGB CONC 30.6 g/dL CAL (32.0-36.0); MONO% 6.3 % (2-13); NEUT# 9.13 thou/uL (2.00-7.15); NEUT% 86.6 % (42-76); RED BLOOD COUNT 3.09 mill/uL (4.20-5.60)
[2024-07-17 12:01] LABS: HEMATOCRIT 28.1 % (37.0-47.0); HEMOGLOBIN 8.6 g/dl (12.0-16.0)
[2024-07-17 12:13] LABS: ALBUMIN 3.6 g/dL (3.2-5.0); BILIRUBIN, TOTAL 0.4 mg/dL (0.02-1.3); CREATININE 0.5 mg/dL (0.5-1.0); POTASSIUM 3.9 mmol/l (3.5-5.1); TOTAL PROTEIN 7.4 g/dL (6.3-8.2)
== END 2024-07-17 15:55 | disposition home or self-care (01) ==
LOC: ED 11:11
PROVIDERS: Family Medicine
DX: E83.52 Hypercalcemia (principal); C55 Malignant neoplasm of uterus, part unspecified; I10 Essential (primary) hypertension; E11.9 Type 2 diabetes mellitus without complications; Z79.84 Long term (current) use of oral hypoglycemic drugs; Z79.60 Long term (current) use of unspecified immunomodulators and immunosuppressants